=== PATIENT | male | born 1985 | race Caucasian/White ===

== ENCOUNTER 2020-12-22 22:25 | Inpatient (IN) | payer OTHER, SELFPAY ==
--- NOTE | ~2020-12-22 | XR_ITS ---
EXAMINATION: XR CHEST CLINICAL INFORMATION: Altered mental status. COMPARISON: None. TECHNIQUE: Frontal view of the chest was obtained. FINDINGS: Complete opacification of the right lung with mild leftward mediastinal shift, likely indicating a large right-sided pleural effusion. No left-sided airspace opacification. No left-sided pleural effusion or pneumothorax. No cardiomediastinal silhouette enlargement. Right chest wall port with its catheter tip in the region of the SVC. XR/XR chest 1V IMPRESSION: Complete opacification of the right chest with mild leftward mediastinal shift, likely indicating a large right-sided pleural effusion.
[2020-12-22 22:33] VITALS: BP 100/71; PULSE 86; RESP 20; TEMP 34.4; O2SAT 95; BMI 19.2
[2020-12-22 22:34] LABS: Glucose, Whole Blood 63 mg/dL (60-115)
--- NOTE | 2020-12-22 22:35 | ED_ITS ---
HPI - General Adult General Chief complaint: General Medical Stated complaint: low blood sugar Time Seen by Provider: 12/22/20 22:30 Source: patient Mode of arrival: ambulatory Limitations: no limitations History of Present Illness HPI narrative: Patient with hx of hepatitis-B with metastatic hepatocellular carcinoma diagnosed in 09/14 with ascites was on chemotherapy which was stopped last week as of terminal stage of cancer and patient was planned to go to hospice care. Today he came as his girlfriend found him very lethargic and unresponsive blood sugar dropped to 21 per EMS was given D50 and blood sugar im proved to 63 and patient became more alert, no fever no vomiting no significant abdominal pain no shortness of breath on arrival patient's blood pressure was 100/71 pulse 86 respiratory rate 20 temperature rectally 93.9 degrees Related Data Allergies Allergy/AdvReac Type Severity Reaction Status Date / Time No Known Allergies Allergy Verified 12/22/20 22:42 Review of Systems Review of Systems: Constitutional : +Weight loss, No Fever, No Chills ENT/Mouth : No sore throat, No Rhinorrhea Eyes: No Eye Pain, No Swelling Cardiovascular : No Chest Pain, no palpitations Respiratory : No Cough, No Sputum, no shortness of breath Gastrointestinal : no Nausea, No Vomiting, No Diarrhea, No abdominal Pain, no black stools Genitourinary : No Dysuria, No Urinary Frequency Musculoskeletal : No joint pain, No Myalgias, No Joint Swelling Skin : No Skin Lesions, No rash Neuro : +Weakness, No Numbness, No Dizziness, No Headache Psych : No Anxiety/Panic, No Depression Heme/Lymph: No Bruising, No Lymphadenopathy Endocrine : No Polyuria, No Polydipsia All other systems reviewed and are negative [facility] Past Medical History Medical History (Updated 12/23/20 @ 01:37 by Connor Haider MD) Chronic pericementitis Hepatitis B Liver cancer Liver cancer, primary, with metastasis from liver to other site Social History Social History Alcohol intake: never Patient Tobacco Use Status: Former Tobacco user Smoked in Last 30 Days: No Use of substances other than those prescribed or required for medical reasons: No Advance Directives: No Advance Directives Information Provided: No Physical Exam Vital Signs: Vital Signs: Last Vital Signs Temp 94.5 F L 12/23/20 00:00 Pulse 85 12/23/20 00:00 Resp 18 12/23/20 00:00 BP 101/67 12/23/20 00:00 Pulse Ox 99 12/23/20 00:00 Body Mass Index 19.2 Const: General: alert, ill appearing and lethargic Nutritional Appearance: thin and underweight Orientation/consciousness: patient oriented x3 and lethargic HENMT: Head: Yes normocephalic Ears: hearing grossly normal bilaterally Face and sinus: Yes normal facial exam Eyes: Conjunctivae: conjunctival abnormal (pallor) Sclerae: sclerae normal Neck: Neck: Yes normal visual inspection Resp: Effort & Inspection: normal respiratory effort Auscultation: diminished lung sounds on the right Percussion: dullness (Right side) Cardio: Palpation: normal PMI Rate: regular rate Rhythm: regular rhythm Heart sounds: S1 normal heart sound present and S2 normal heart sound present GI: Inspection: Yes distended Palpation (GI): Soft to palpation and Hepatosplenomegaly present Percussion: Yes dullness to percussion and Yes Fluid wave present Auscultation: normal bowel sounds : General: Yes no CVA tenderness Back/Spine/Pelvis: Back: no CVA tenderness Thoracic/Lumbar Spine: thoracic and lumbar spine normal to inspection Skin: General skin exam: no rashes or lesions noted Neuro: Other: Low muscle mass emaciated General: patient oriented x3, moves all extremities and no focal motor deficits Extrem: General: Yes normal to inspection, Yes full ROM, Yes no calf tenderness and No pedal edema Medical Decision Making MDM Narrative Medical decision making narrative: Patient with end-stage liver disease secondary to hepatocellular carcinoma unable to get chemotherapy as patient unable to tolerate came with hypoglycemia noticed to have right pleural effusion and ascites and hyperkalemia. Will admit patient for supportive treatment. Patient plan to go for hospice care Medical Records Medical records reviewed: Yes I reviewed the patient's medical records. Medical records narrative: Patient at [facility] on 12/17 with paracentesis and 3 L of serous fluid was drained , was admitted on 12/17 and discharged on 12/19 to hospice care prior to that patient was admitted on 11/20 and discharged 11/24 for hyponatremia and sinus tachycardia Lab Data Result diagrams: 12/22/20 23:21 12/23/20 00:35 Labs: Lab Results 12/22/20 12/22/20 12/22/20 Range/Units 22:29 23:08 23:21 WBC 10.9 H (4.8-10.8) X10*3/uL RBC 3.28 L (4.60-5.80) X10*6/uL Hgb 10.7 L (14.0-18.0) g/dl Hct 30.8 L (42-52) % MCV 93.9 (80-98) fL MCH 32.6 (27.0-33.0) pg MCHC 34.7 (31.0-36.0) g/dl RDW 16.5 H (11.0-16.0) % Plt Count 108 L (160-400) X10*3/uL MPV 9.3 L (9.4-12.4) fL Immature Gran % (Auto) 0.5 H (0.0-0.4) % Neut % (Auto) 79.1 H (45-73) % Lymph % (Auto) 16.5 L (20-40) % [place] % (Auto) 3.8 (2-11) % Eos % (Auto) 0.0 (0-4) % Baso % (Auto) 0.1 (0-2) % Lymph # (Auto) 1.8 (1.2-4.9) X10*3/uL [place] # (Auto) 0.4 (0.1-1.2) X10*3/uL Eos # (Auto) 0.0 (0.0-0.4) X10*3/uL Baso # (Auto) 0.0 (0.0-0.2) X10*3/uL Abs Immat Gran (auto) 0.06 H (0.00-0.03) X10*3/uL Absolute Neuts (auto) 8.6 H (2.0-8.3) X10*3/uL Absolute Nucleated RBC 0.000 (0.0-0.012) X10*3/uL Nucleated RBC % (auto) 0.0 (0.0-0.2) /100WBC PT (10.8-13.0) SEC INR (0.9-1.1) APTT (24.1-38.0) SEC Sodium Potassium Chloride Carbon Dioxide Anion Gap BUN Creatinine Estim Creat Clear Calc Estimated GFR POC Glucose 63 52 L* (60-115) mg/dL Random Glucose Lactic Acid (0.5-2.0) mmol/L Calcium Total Bilirubin (0.0-1.0) mg/dL Direct Bilirubin (0.0-0.5) mg/dL AST (5-37) U/L ALT (0-40) U/L Alkaline Phosphatase (39-117) U/L Ammonia (13-55) umol/L Total Protein (6.5-8.0) g/dL Albumin (3.5-5.0) g/dL Urine Color Urine Appearance Urine pH (5.0-8.0) Ur Specific [place] (1.005-1.025) Urine Protein (NEG-TRACE) MG/DL Urine Glucose (UA) (NEG) MG/DL Urine Ketones (NEG) MG/DL Urine Blood (NEG) Urine Nitrite (NEG) Ur Leukocyte Esterase (NEG) Urine RBC (0) /HPF Urine WBC (0-4) /HPF Ur Squamous Epith Cells /LPF Ur Renal Epithelial Cell /LPF Urine Bacteria /LPF COVID-19 (TOM) (Negative) COVID-19 Clin Com 12/22/20 12/22/20 12/22/20 Range/Units 23:21 23:21 23:21 WBC (4.8-10.8) X10*3/uL RBC (4.60-5.80) X10*6/uL Hgb (14.0-18.0) g/dl Hct (42-52) % MCV (80-98) fL MCH (27.0-33.0) pg MCHC (31.0-36.0) g/dl RDW (11.0-16.0) % Plt Count (160-400) X10*3/uL MPV (9.4-12.4) fL Immature Gran % (Auto) (0.0-0.4) % Neut % (Auto) (45-73) % Lymph % (Auto) (20-40) % [place] % (Auto) (2-11) % Eos % (Auto) (0-4) % Baso % (Auto) (0-2) % Lymph # (Auto) (1.2-4.9) X10*3/uL [place] # (Auto) (0.1-1.2) X10*3/uL Eos # (Auto) (0.0-0.4) X10*3/uL Baso # (Auto) (0.0-0.2) X10*3/uL Abs Immat Gran (auto) (0.00-0.03) X10*3/uL Absolute Neuts (auto) (2.0-8.3) X10*3/uL Absolute Nucleated RBC (0.0-0.012) X10*3/uL Nucleated RBC % (auto) (0.0-0.2) /100WBC PT 21.2 H (10.8-13.0) SEC INR 1.8 H (0.9-1.1) APTT 38.1 H (24.1-38.0) SEC Sodium Cancelled Potassium Cancelled Chloride Cancelled Carbon Dioxide Cancelled Anion Gap Cancelled BUN Cancelled Creatinine Cancelled Estim Creat Clear Calc Cancelled Estimated GFR Cancelled POC Glucose (60-115) mg/dL Random Glucose Cancelled Lactic Acid 1.8 (0.5-2.0) mmol/L Calcium Cancelled Total Bilirubin (0.0-1.0) mg/dL Direct Bilirubin (0.0-0.5) mg/dL AST (5-37) U/L ALT (0-40) U/L Alkaline Phosphatase (39-117) U/L Ammonia (13-55) umol/L Total Protein (6.5-8.0) g/dL Albumin (3.5-5.0) g/dL Urine Color Urine Appearance Urine pH (5.0-8.0) Ur Specific [place] (1.005-1.025) Urine Protein (NEG-TRACE) MG/DL Urine Glucose (UA) (NEG) MG/DL Urine Ketones (NEG) MG/DL Urine Blood (NEG) Urine Nitrite (NEG) Ur Leukocyte Esterase (NEG) Urine RBC (0) /HPF Urine WBC (0-4) /HPF Ur Squamous Epith Cells /LPF Ur Renal Epithelial Cell /LPF Urine Bacteria /LPF COVID-19 (TOM) (Negative) COVID-19 Clin Com 12/22/20 12/22/20 12/22/20 Range/Units 23:21 23:21 23:21 WBC (4.8-10.8) X10*3/uL RBC (4.60-5.80) X10*6/uL Hgb (14.0-18.0) g/dl Hct (42-52) % MCV (80-98) fL MCH (27.0-33.0) pg MCHC (31.0-36.0) g/dl RDW (11.0-16.0) % Plt Count (160-400) X10*3/uL MPV (9.4-12.4) fL Immature Gran % (Auto) (0.0-0.4) % Neut % (Auto) (45-73) % Lymph % (Auto) (20-40) % [place] % (Auto) (2-11) % Eos % (Auto) (0-4) % Baso % (Auto) (0-2) % Lymph # (Auto) (1.2-4.9) X10*3/uL [place] # (Auto) (0.1-1.2) X10*3/uL Eos # (Auto) (0.0-0.4) X10*3/uL Baso # (Auto) (0.0-0.2) X10*3/uL Abs Immat Gran (auto) (0.00-0.03) X10*3/uL Absolute Neuts (auto) (2.0-8.3) X10*3/uL Absolute Nucleated RBC (0.0-0.012) X10*3/uL Nucleated RBC % (auto) (0.0-0.2) /100WBC PT (10.8-13.0) SEC INR (0.9-1.1) APTT (24.1-38.0) SEC Sodium Potassium Chloride Carbon Dioxide Anion Gap BUN Creatinine Estim Creat Clear Calc Estimated GFR POC Glucose (60-115) mg/dL Random Glucose Lactic Acid (0.5-2.0) mmol/L Calcium Total Bilirubin (0.0-1.0) mg/dL Direct Bilirubin (0.0-0.5) mg/dL AST (5-37) U/L ALT (0-40) U/L Alkaline Phosphatase (39-117) U/L Ammonia 52 (13-55) umol/L Total Protein (6.5-8.0) g/dL Albumin (3.5-5.0) g/dL Urine Color DARK YELLOW Urine Appearance CLEAR Urine pH 6.0 (5.0-8.0) Ur Specific [place] 1.025 (1.005-1.025) Urine Protein NEG (NEG-TRACE) MG/DL Urine Glucose (UA) NEG (NEG) MG/DL Urine Ketones NEG (NEG) MG/DL Urine Blood TRACE (NEG) Urine Nitrite NEG (NEG) Ur Leukocyte Esterase NEG (NEG) Urine RBC 1-4 (0) /HPF Urine WBC 1-4 (0-4) /HPF Ur Squamous Epith Cells TRACE /LPF Ur Renal Epithelial Cell 1+ /LPF Urine Bacteria 1+ /LPF COVID-19 (TOM) Negative (Negative) COVID-19 Clin Com See Note 12/22/20 12/23/20 12/23/20 Range/Units 23:41 00:16 00:35 WBC (4.8-10.8) X10*3/uL RBC (4.60-5.80) X10*6/uL Hgb (14.0-18.0) g/dl Hct (42-52) % MCV (80-98) fL MCH (27.0-33.0) pg MCHC (31.0-36.0) g/dl RDW (11.0-16.0) % Plt Count (160-400) X10*3/uL MPV (9.4-12.4) fL Immature Gran % (Auto) (0.0-0.4) % Neut % (Auto) (45-73) % Lymph % (Auto) (20-40) % [place] % (Auto) (2-11) % Eos % (Auto) (0-4) % Baso % (Auto) (0-2) % Lymph # (Auto) (1.2-4.9) X10*3/uL [place] # (Auto) (0.1-1.2) X10*3/uL Eos # (Auto) (0.0-0.4) X10*3/uL Baso # (Auto) (0.0-0.2) X10*3/uL Abs Immat Gran (auto) (0.00-0.03) X10*3/uL Absolute Neuts (auto) (2.0-8.3) X10*3/uL Absolute Nucleated RBC (0.0-0.012) X10*3/uL Nucleated RBC % (auto) (0.0-0.2) /100WBC PT (10.8-13.0) SEC INR (0.9-1.1) APTT (24.1-38.0) SEC Sodium 125 L Potassium 6.6 H* Chloride 94 L Carbon Dioxide 22 Anion Gap 16 BUN 86 H* Creatinine 1.85 H Estim Creat Clear Calc 53.1 Estimated GFR 42 POC Glucose 128 H 111 (60-115) mg/dL Random Glucose 119 H Lactic Acid (0.5-2.0) mmol/L Calcium 7.9 L Total Bilirubin 6.7 H (0.0-1.0) mg/dL Direct Bilirubin 5.3 H (0.0-0.5) mg/dL AST 356 H (5-37) U/L ALT 46 H (0-40) U/L Alkaline Phosphatase 446 H (39-117) U/L Ammonia (13-55) umol/L Total Protein 6.6 (6.5-8.0) g/dL Albumin 1.6 L (3.5-5.0) g/dL Urine Color Urine Appearance Urine pH (5.0-8.0) Ur Specific [place] (1.005-1.025) Urine Protein (NEG-TRACE) MG/DL Urine Glucose (UA) (NEG) MG/DL Urine Ketones (NEG) MG/DL Urine Blood (NEG) Urine Nitrite (NEG) Ur Leukocyte Esterase (NEG) Urine RBC (0) /HPF Urine WBC (0-4) /HPF Ur Squamous Epith Cells /LPF Ur Renal Epithelial Cell /LPF Urine Bacteria /LPF COVID-19 (TOM) (Negative) COVID-19 Clin Com ECG Data Attestation: I personally reviewed and interpreted this ECG as follows: Interpretation: Normal sinus rhythm LVH with strain pattern and T inversion in lateral leads no acute ischemia Critical Care Time Critical Care Time Critical Care Time: Yes Total Critical Care Time: 40 Attestation: I spent 40 minutes of critical care, with interventions, assessments, speaking to patient, consultants, and family. Discharge Plan Discharge Clinical Impression: Liver cancer, primary, with metastasis from liver to other site, Acute hyperkalemia, Chronic hyponatremia, Hypoglycemia Renal failure, acute on chronic Qualifiers: Acute renal failure type: unspecified Chronic kidney disease stage: stage 3 (moderate) Chronic kidney disease stage 3 subtype: stage 3b (GFR 30-44) Qualified Code(s): N17.9 - Acute kidney failure, unspecified Patient Disposition: Admitted As Inpatient
--- NOTE | 2020-12-22 22:36 | ECG_ITS ---
Test Reason : ALTERED MENTAL STAT Blood Pressure : / mmHG Vent. Rate : 083 BPM Atrial Rate : 083 BPM P-R Int : 176 ms QRS Dur : 146 ms QT Int : 406 ms P-R-T Axes : 043 040 089 degrees QTc Int : 477 ms Normal sinus rhythm Left ventricular hypertrophy with QRS widening Abnormal ECG No previous ECGs available Referred By: Connor Haider Electronically Signed By:Clint Atkinson
[2020-12-22] MEDS: Dextrose 5 % and 0.45 % NaCl 1,000 ML 125 ML IVCONT (23:25)
[2020-12-22 23:27] LABS: MANUAL DIFF FLAG NO
[2020-12-22 23:28] LABS: Basophils Percent Auto 0.1 % (0-2); Hematocrit 30.8 % (42-52); Hemoglobin 10.7 g/dl (14.0-18.0); Imm Gran Abs Auto 0.06 X10*3/uL (0.00-0.03); Imm Gran Pct Auto 0.5 % (0.0-0.4); Lymphocytes Absolute Auto 1.8 X10*3/uL (1.2-4.9); Lymphocytes Percent Auto 16.5 % (20-40); Mean Corpuscular HGB Conc 34.7 g/dl (31.0-36.0); Mean Corpuscular Hemoglobin 32.6 pg (27.0-33.0); Mean Corpuscular Volume 93.9 fL (80-98); Mean Platelet Volume 9.3 fL (9.4-12.4); Monocytes Absolute Auto 0.4 X10*3/uL (0.1-1.2); Monocytes Percent Auto 3.8 % (2-11); Neutrophils Absolute Auto 8.6 X10*3/uL (2.0-8.3); Neutrophils Percent Auto 79.1 % (45-73); Platelet Count 108 X10*3/uL (160-400); Red Blood Count 3.28 X10*6/uL (4.60-5.80); Red Cell Distribution Width 16.5 % (11.0-16.0); White Blood Count 10.9 X10*3/uL (4.8-10.8)
[2020-12-22 23:37] VITALS: BP 95/62; PULSE 87; RESP 18; TEMP 34.6; O2SAT 95
[2020-12-22 23:37] LABS: Glucose, Whole Blood 52 mg/dL (60-115)
[2020-12-22 23:37] LABS: Ammonia 52 umol/L (13-55)
[2020-12-22 23:40] LABS: Lactic Acid 1.8 mmol/L (0.5-2.0)
[2020-12-22 23:43] LABS: Glucose Urine UA NEG (NEG); Leukocyte Esterase Urine NEG (NEG); Nitrite Urine NEG (NEG); Specific Gravity - Urine 1.025 (1.005-1.025); Urine Blood TRACE (NEG); Urine Ketones NEG (NEG); Urine Protein NEG (NEG-TRACE)
[2020-12-22 23:44] LABS: Glucose, Whole Blood 128 mg/dL (60-115)
[2020-12-22 23:44] LABS: Appearance Urine CLEAR; Color Urine DARK YELLOW
[2020-12-22 23:47] LABS: INTERNATIONAL NORM RATIO 1.8 (0.9-1.1); Prothrombin Time 21.2 SEC (10.8-13.0)
[2020-12-22 23:54] LABS: COVID-19 Test Negative (Negative); IDNOW Serial# 9DD0AD1C
[2020-12-23] VITALS (10 sets, daily range): BP systolic 87–101; BP diastolic 50–67; PULSE 85–105; RESP 9–24; TEMP 34.7–36.7; O2SAT 92–99
[2020-12-23 00:02] LABS: Bacteria Urine 1+ /LPF; Renal Epithelial Cells Urine 1+ /LPF; Squamous Epithelial Cell Urine TRACE /LPF
[2020-12-23 00:17] LABS: Partial Thromboplastin Time 38.1 SEC (24.1-38.0)
[2020-12-23 00:20] LABS: Glucose, Whole Blood 111 mg/dL (60-115)
[2020-12-23] MEDS: ondansetron HCL 4 MG/2 ML VIAL IVPUSH (00:27)
[2020-12-23] MEDS: Morphine Sulfate 4 MG/ML CARTRIDGE IVPUSH (00:27)
[2020-12-23 01:11] LABS: Alanine Aminotransferase 46 U/L (0-40); Albumin Level 1.6 g/dL (3.5-5.0); Alkaline Phosphatase 446 U/L (39-117); Anion Gap 16 (12-20); Aspartate Amino Transferase 356 U/L (5-37); Bilirubin Direct 5.3 mg/dL (0.0-0.5); Bilirubin Total 6.7 mg/dL (0.0-1.0); Blood Urea Nitrogen 86 mg/dL (9-16); Calcium 7.9 mg/dL (8.4-10.2); Carbon Dioxide 22 mmol/L (22-29); Chloride 94 mmol/L (96-108); Creatinine Clr Calc Pharmacy 53.1; Estimated Glomerular Filt Rate 42; Glucose Random 119 mg/dL (60-115); Potassium 6.6 mmol/L (3.3-5.1); Sodium 125 mmol/L (135-145); Total Protein 6.6 g/dL (6.5-8.0)
[2020-12-23] MEDS: Insulin Regular, Human 100 UNIT/ML 3 ML VIAL IVPUSH (01:29)
[2020-12-23] MEDS: Sodium Bicarbonate 8.4% 50 MEQ/50 ML VIAL IVPUSH (01:30)
[2020-12-23] MEDS: Calcium Gluconate/NaCl,Iso-Osm 2 GM/100 ML PLAST..BAG IV (01:36)
--- NOTE | 2020-12-23 02:45 | PC.NURSE ---
Monitoring pt at this time. pending admission. spouse asleep at bedside. per spouse, pt is on metroprolol for rate control and has normal hr in 120s. pt is abnormally low. Per spouse pt is full code at this time. does not tolerate po well and was pending hospice eval by [facility].
--- NOTE | 2020-12-23 03:05 | PC.NURSE ---
contact made to hosptialist. plan to put in orders at this time and eval upstairs.
--- NOTE | 2020-12-23 03:13 | PC.NURSE ---
Report taken from Hodan, this RN resuming care. Per Hodan, plan for admission and possibly change of status to RN BURN. Pts girlfriend at bedside, pt resting in bed at this time. D5LR infusing according to MAR. VSS at this time. Pt and girlfriend aware of plan for admission to hospital, room assignment pending. Continue to monitor.
--- NOTE | 2020-12-23 03:56 | PC.NURSE ---
Repeat chemistries obtained and sent. Per girlfriend, pt feeling restless due to pain. GF requesting pain medication. This RN contacting hospitalist regarding PRN order for pain medication. Continue to monitor, awaiting room assignment.
--- NOTE | 2020-12-23 04:15 | PC.NURSE ---
This RN contacting pharmacy regarding verification of Dilaudid. Per Pharmacy, working on it.
[2020-12-23] MEDS: HYDROmorphone HCl 1 MG/ML SYRINGE IVPUSH (04:23)
--- NOTE | 2020-12-23 04:25 | PC.NURSE ---
Dilaudid order remains unverified despite this RN calling night pharmacy. Pt medicated with Dilaudid despite verification due to terminal illness and severe pain. VSS at this time, continue to monitor.
[2020-12-23 04:39] LABS: Anion Gap 18 (12-20); Blood Urea Nitrogen 86 mg/dL (9-16); Calcium 8.4 mg/dL (8.4-10.2); Carbon Dioxide 21 mmol/L (22-29); Chloride 93 mmol/L (96-108); Creatinine Clr Calc Pharmacy 51.4; Estimated Glomerular Filt Rate 40; Glucose Random 121 mg/dL (60-115); Potassium 6.7 mmol/L (3.3-5.1); Sodium 125 mmol/L (135-145)
--- NOTE | 2020-12-23 04:57 | PC.NURSE ---
This RN contacting hospitalist regarding orders for room 21. This RN discussing possible [employer] orders with MD. This RN asking MD to assess pt regarding orders for further procedures and medications as pt was supposed to begin hospice today. MD coming to bedside.
--- NOTE | 2020-12-23 05:16 | P.HPHOSP_ITS ---
History of Present Illness Date of Service: 12/23/20 Chief Complaint: Semi-responsive Male with past medical history of hepatitis-B, primary liver cancer with Mets, presents to the hospital after his girlfriend found to be unresponsive. Patient's girlfriend at bedside reports that he was feeling weak and less r esponsive throughout the day but found him down and called EMS. On arrival of EMS patient's glucose was 21. Patient himself currently is somnolent, he speaks [place] only, tried to get any history from him with the help of child care development specialist with no success. He attempts communication but only moves his eyes and his hand sometimes and not able to communicate clearly with us. His girlfriend at bedside is his healthcare proxy. It is seems the patient was diagnosed with liver cancer in August and attempted chemotherapy with no success. He did not tolerate chemotherapy and therefore was discontinued. Patient is very cachectic, girlfriend reports that his p.o. intake has also significantly decrea sed. Patient was given glucagon, D50 x2, and started on D5 with half NS in his glucose improved. On arrival labs were significant for WBC count of 10.9, hemoglobin of 10.7, sodium of 125, potassium of 6.7, BUN of 86, creatinine of 1.9, elevated bili of 6.7, AST of 356 ALT of 46, alk-phos of 446 and albumin of 1.6. Had an extensive discussion with the patient's girlfriend who is his healthcare proxy regarding his poor prognosis, there was aplan to make pt hospice but she has not had a chance to have that discussion yet before pt becoming sick today. patient unable to take any p.o. intake at this time, is unable to take any Kayexalate, I discussed the potential for cardiac arrhythmia as a result of the hyperkalemia. Gave the option of per rectum administration of Kayexalate, but also discussed extensively alternatives like comfort measures. At this time his healthcare proxy (Liberty Christianson) does want him to have Kayexalate administered rectally but would like to make patient comfortable. The nurse and the child care development specialist were both present during this discussion and we tried to ask patient directly this question but he was unable to communicate his needs and his girlfriend reported that as his healthcare proxy she would like him to be comfortable at this time. Per his hcp ( gf), pt has no family and does not have any contacts. Comfort measures initiated. HCP: Leopoldo Christianson ( [place]) Review of Systems Review of Systems: Yes Unobtainable due to mental status [facility] Medical History Chronic pericementitis Hepatitis B Liver cancer Liver cancer, primary, with metastasis from liver to other site Social History Alcohol intake: never Patient Tobacco Use Status: Former Tobacco user Smoked in Last 30 Days: No Use of substances other than those prescribed or required for medical reasons: No Advance Directives: No Advance Directives Information Provided: No Meds Allergies Allergy/AdvReac Type Severity Reaction Status Date / Time No Known Allergies Allergy Verified 12/22/20 22:42 Active Medications: Current Medications Generic Name Dose Route Start Last Admin Trade Name Freq PRN Reason Stop Dose Admin Docusate Sodium 100 mg 12/23/20 03:49 Docusate Sodium 100 Mg Capsule PO DAILY PRN Constipation Dextrose/Sodium Chloride 1,000 mls @ 125 mls/hr 12/22/20 22:45 12/22/20 23:25 D51/2ns IVCONT 125 mls/hr .Q8H CHANDNI Administration Calcium Gluconate 2 gm in 100 mls @ 50 mls/hr 12/23/20 04:41 Calcium Gluconate IV 12/23/20 06:40 ONCE ONE Metoprolol Succinate 25 mg 12/23/20 09:00 Metoprolol Succinate Er 25 Mg Tab.Er.24h PO DAILY [facility] Protocol Ondansetron HCl 4 mg 12/23/20 03:49 Ondansetron Hcl 4 Mg/2 Ml Vial IVPUSH Q8H PRN Nausea and Vomiting Oxycodone HCl 10 mg 12/23/20 03:49 Oxycodone Hcl Immed Release 5 Mg Tablet PO Q3H PRN Pain Rifaximin 550 mg 12/23/20 09:00 Rifaximin 550 Mg Tablet PO BID CHANDNI Sodium Chloride 3 ml 12/23/20 08:00 0.9 % Sodium Chloride Flush 3 Ml Syringe IVFLUSH QSHIFT [facility] Home Medications Medication Instructions Recorded Confirmed Last Taken Type metoprolol succinate 1 tab PO DAILY 12/23/20 12/23/20 Unknown History oxycodone 2 tab PO Q3-4H PRN 12/23/20 12/23/20 Unknown History rifaximin [Xifaxan] 1 tab PO BID 12/23/20 12/23/20 Unknown History tenofovir alafenamide [Vemlidy] 1 tab PO DAILY 12/23/20 12/23/20 Unknown History Physical Exam Vital Signs and Narrative: Vital Signs: Last Vital Signs Temp 98.1 F 12/23/20 04:24 Pulse 99 12/23/20 04:24 Resp 14 12/23/20 04:24 BP 88/56 L 12/23/20 04:24 Pulse Ox 95 12/23/20 04:24 Body Mass Index 19.2 Const: General: awake, lethargic and tired appearing Nutritional Appearance: cachectic (Severely cachectic) Orientation/consciousness: lethargic Eyes: General: appearance normal, both eyes and all related structures Resp: Other: Tachypneic Cardio: Rate: regular rate Rhythm: regular rhythm GI: Palpation (GI): Soft to palpation Auscultation: normal bowel sounds Extrem: General: Yes normal to inspection and Yes no pedal edema Results Labs CBC and Chem 7: 12/22/20 23:21 12/23/20 03:55 Labs: Laboratory Results - last 24 hr 12/22/20 12/22/20 12/22/20 22:29 23:08 23:21 MCV 93.9 MCH 32.6 MCHC 34.7 RDW 16.5 H Plt Count 108 L MPV 9.3 L Immature Gran % (Auto) 0.5 H Neut % (Auto) 79.1 H Lymph % (Auto) 16.5 L [place] % (Auto) 3.8 Eos % (Auto) 0.0 Baso % (Auto) 0.1 Lymph # (Auto) 1.8 [place] # (Auto) 0.4 Eos # (Auto) 0.0 Baso # (Auto) 0.0 Abs Immat Gran (auto) 0.06 H Absolute Neuts (auto) 8.6 H Absolute Nucleated RBC 0.000 Nucleated RBC % (auto) 0.0 PT INR APTT Anion Gap Estim Creat Clear Calc Estimated GFR POC Glucose 63 52 L* Random Glucose Lactic Acid Calcium Total Bilirubin Direct Bilirubin AST ALT Alkaline Phosphatase Ammonia Total Protein Albumin Urine Color Urine Appearance Urine pH Ur Specific [place] Urine Protein Urine Glucose (UA) Urine Ketones Urine Blood Urine Nitrite Ur Leukocyte Esterase Urine RBC Urine WBC Ur Squamous Epith Cells Ur Renal Epithelial Cell Urine Bacteria COVID-19 (TOM) COVID-19 Clin Com 12/22/20 12/22/20 12/22/20 23:21 23:21 23:21 MCV MCH MCHC RDW Plt Count MPV Immature Gran % (Auto) Neut % (Auto) Lymph % (Auto) [place] % (Auto) Eos % (Auto) Baso % (Auto) Lymph # (Auto) [place] # (Auto) Eos # (Auto) Baso # (Auto) Abs Immat Gran (auto) Absolute Neuts (auto) Absolute Nucleated RBC Nucleated RBC % (auto) PT 21.2 H INR 1.8 H APTT 38.1 H Anion Gap Cancelled Estim Creat Clear Calc Cancelled Estimated GFR Cancelled POC Glucose Random Glucose Cancelled Lactic Acid 1.8 Calcium Cancelled Total Bilirubin Direct Bilirubin AST ALT Alkaline Phosphatase Ammonia Total Protein Albumin Urine Color Urine Appearance Urine pH Ur Specific [place] Urine Protein Urine Glucose (UA) Urine Ketones Urine Blood Urine Nitrite Ur Leukocyte Esterase Urine RBC Urine WBC Ur Squamous Epith Cells Ur Renal Epithelial Cell Urine Bacteria COVID-19 (TOM) COVID-19 [employer] 12/22/20 12/22/20 12/22/20 23:21 23:21 23:21 MCV MCH MCHC RDW Plt Count MPV Immature Gran % (Auto) Neut % (Auto) Lymph % (Auto) [place] % (Auto) Eos % (Auto) Baso % (Auto) Lymph # (Auto) [place] # (Auto) Eos # (Auto) Baso # (Auto) Abs Immat Gran (auto) Absolute Neuts (auto) Absolute Nucleated RBC Nucleated RBC % (auto) PT INR APTT Anion Gap Estim Creat Clear Calc Estimated GFR POC Glucose Random Glucose Lactic Acid Calcium Total Bilirubin Direct Bilirubin AST ALT Alkaline Phosphatase Ammonia 52 Total Protein Albumin Urine Color DARK YELLOW Urine Appearance CLEAR Urine pH 6.0 Ur Specific [place] 1.025 Urine Protein NEG Urine Glucose (UA) NEG Urine Ketones NEG Urine Blood TRACE Urine Nitrite NEG Ur Leukocyte Esterase NEG Urine RBC 1-4 Urine WBC 1-4 Ur Squamous Epith Cells TRACE Ur Renal Epithelial Cell 1+ Urine Bacteria 1+ COVID-19 (TOM) Negative COVID-19 Clin Com See Note 05/31/21 06/01/21 06/01/21 23:41 00:16 00:35 MCV MCH MCHC RDW Plt Count MPV Immature Gran % (Auto) Neut % (Auto) Lymph % (Auto) [place] % (Auto) Eos % (Auto) Baso % (Auto) Lymph # (Auto) [place] # (Auto) Eos # (Auto) Baso # (Auto) Abs Immat Gran (auto) Absolute Neuts (auto) Absolute Nucleated RBC Nucleated RBC % (auto) PT INR APTT Anion Gap 16 Estim Creat Clear Calc 53.1 Estimated GFR 42 POC Glucose 128 H 111 Random Glucose 119 H Lactic Acid Calcium 7.9 L Total Bilirubin 6.7 H Direct Bilirubin 5.3 H AST 356 H ALT 46 H Alkaline Phosphatase 446 H Ammonia Total Protein 6.6 Albumin 1.6 L Urine Color Urine Appearance Urine pH Ur Specific [place] Urine Protein Urine Glucose (UA) Urine Ketones Urine Blood Urine Nitrite Ur Leukocyte Esterase Urine RBC Urine WBC Ur Squamous Epith Cells Ur Renal Epithelial Cell Urine Bacteria COVID-19 (TOM) COVID-19 [employer] 12/23/20 03:55 MCV MCH MCHC RDW Plt Count MPV Immature Gran % (Auto) Neut % (Auto) Lymph % (Auto) [place] % (Auto) Eos % (Auto) Baso % (Auto) Lymph # (Auto) [place] # (Auto) Eos # (Auto) Baso # (Auto) Abs Immat Gran (auto) Absolute Neuts (auto) Absolute Nucleated RBC Nucleated RBC % (auto) PT INR APTT Anion Gap 18 Estim Creat Clear Calc 51.4 Estimated GFR 40 POC Glucose Random Glucose 121 H Lactic Acid Calcium 8.4 D Total Bilirubin Direct Bilirubin AST ALT Alkaline Phosphatase Ammonia Total Protein Albumin Urine Color Urine Appearance Urine pH Ur Specific [place] Urine Protein Urine Glucose (UA) Urine Ketones Urine Blood Urine Nitrite Ur Leukocyte Esterase Urine RBC Urine WBC Ur Squamous Epith Cells Ur Renal Epithelial Cell Urine Bacteria COVID-19 (TOM) COVID-19 [employer] Com Imaging Radiologist's Impressions: Impressions Chest X-Ray 12/22/20 22:44 IMPRESSION: Complete opacification of the right chest with mild leftward mediastinal shift, likely indicating a large right-sided pleural effusion. Assessment and Plan (1) Liver cancer, primary, with metastasis from liver to other site: Status: Acute (2) Acute hyperkalemia: Status: Acute (3) Renal failure, acute on chronic: Qualifiers: Acute renal failure type: unspecified Chronic kidney disease stage: st age 3 (moderate) Chronic kidney disease stage 3 subtype: stage 3b (GFR 30-44) Qualified Code(s): N17.9 - Acute kidney failure, unspecified; N18.32 - Chronic kidney disease, stage 3b Status: Acute (4) Chronic hyponatremia: Status: Acute (5) Hypoglycemia: Status: Acute This is a 35-year-old male with past medical history of liver cancer recently diagnosed in August who failed chemotherapy treatment presents to the hospital with hypoglycemia. Patient was treated for the hypoglycemia and currently on D5 but has been found to have hyperkalemia. Calcium gluconate, sodium bicarb, insulin and glucose were given, patient unable to take any p.o. other for Kayexalate was attempted but also not able to be administered, potassium remains high, had discussion with his healthcare proxy and at this point patient will be made comfortable. I discussed with the patient's girlfriend that he may go into arrhythmia as a result of his hyperkalemia. At this time she does want Kayexalate given rectally but also wants us to make him comfortable by given him medications to any help reduce his pain and suffering as well as his anxiety and tachypnea. She is aware that he may pass and that at this time we focus on patient's comfort and she is agreeable. This discussion occurred in the presence of nurse as well as child care development specialist Healthcare proxy: Liberty Christianson more than 30 mins were spent in discussion and chart review
[2020-12-23] MEDS: Sodium Polystyrene Sulfon/Sorb 15 GM/60 ML ORAL.SUSP 30 GM PR (05:25)
[2020-12-23] MEDS: Albuterol/Iprat 2.5/0.5MG 3 ML AMPUL.NEB INHALE (05:41)
--- NOTE | 2020-12-23 05:41 | PC.NURSE ---
Pt medicated with Kayexalate AR. Pt provided with fresh bed linens and repositioning. Pt reporting pain, girlfriend requesting pain medication. RT at bedside for UPD. VSS at this time.
[2020-12-23] MEDS: LORazepam 0.5 MG TABLET SUBLINGUAL (05:52)
[2020-12-23] MEDS: Morphine Sulfate 4 MG/ML CARTRIDGE IM (05:52)
--- NOTE | 2020-12-23 06:04 | PC.NURSE ---
Pt medicated with PRN Ativan and PRN Morphine for anxiety, pain and restlessness. 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 Continue to monitor.
[2020-12-23] MEDS: Dextrose 5 % and 0.45 % NaCl 1,000 ML 125 ML IVCONT ×2 (06:27→14:31)
--- NOTE | 2020-12-23 06:38 | PC.NURSE ---
This RN discussing situation with ER MD, plan for Morphine infusion. This RN contacting pharmacy.
--- NOTE | 2020-12-23 08:31 | P.HPHOSP_ITS ---
History of Present Illness Date of Service: 12/23/20 35-year-old gentleman with a past medical history significant for metastatic hepatocellular carcinoma secondary to chronic hepatitis B treated with chemotherapy with atezolizumab and bevacizumab at [facility]--he was diagnosed around at the end of august this year. The reported targed chemotherapy has been unsucesful and complications of hyponatremia and anemia that has required hospitalization. Chemo was stopped about a week ago Acording to his significant other at bed side Liberty who is also health care proxy, patient has been steadily declining and was offered hospice but declined and unfortunately continue to declined. Today, his girlfriend found him very lethargic and unresponsive. His sugar was 21 per EMS and was given D50 and blood sugar improved to 63 and patient became slightly more alert, but significantly very lethargic, blood pressure is low 87/61. Following discussion with his girlfriend decision has been made that the patient to be comfort care measures with no further treatment and has been given morphine. He is presently unresponsive is not able to communicate. His respirations are shallow PMFSH Medical History Chronic pericementitis Hepatitis B Liver cancer Liver cancer, primary, with metastasis from liver to other site Social History Alcohol intake: never Patient Tobacco Use Status: Former Tobacco user Smoked in Last 30 Days: No Use of substances other than those prescribed or required for medical reasons: No Advance Directives: No Advance Directives Information Provided: No Meds Allergies Allergy/AdvReac Type Severity Reaction Status Date / Time No Known Allergies Allergy Verified 12/22/20 22:42 Active Medications: Current Medications Generic Name Dose Route Start Last Admin Trade Name Freq PRN Reason Stop Dose Admin Docusate Sodium 100 mg 12/23/20 03:49 Docusate Sodium 100 Mg Capsule PO DAILY PRN Constipation Dextrose/Sodium Chloride 1,000 mls @ 125 mls/hr 12/22/20 22:45 12/23/20 06:27 D51/2ns IVCONT 125 mls/hr .Q8H CHANDNI Administration Morphine Sulfate 100 mg in 100 mls @ 0 mls/hr 12/23/20 06:45 IVCONT .Q0M CHANDNI Protocol Per Protocol Lorazepam 0.5 mg 12/23/20 05:19 12/23/20 05:52 Lorazepam 0.5 Mg Tablet SUBLINGUAL 0.5 mg Q4H PRN Administration anxiety/restlessness Metoprolol Succinate 25 mg 12/23/20 09:00 Metoprolol Succinate Er 25 Mg Tab.Er.24h PO DAILY [facility] Protocol Morphine Sulfate 4 mg 12/23/20 05:19 12/23/20 05:52 Morphine Sulfate 4 Mg/Ml Cartridge IM 4 mg Q4H PRN Administration Discomfort/Shortness of breath Naloxone HCl 0.2 mg 12/23/20 05:19 Naloxone Hcl 0.4 Mg/Ml Vial IVPUSH Q2M PRN Excessive sedation or RR < 8 Ondansetron HCl 4 mg 12/23/20 03:49 Ondansetron Hcl 4 Mg/2 Ml Vial IVPUSH Q8H PRN Nausea and Vomiting Sodium Chloride 3 ml 12/23/20 08:00 0.9 % Sodium Chloride Flush 3 Ml Syringe IVFLUSH QSHIFT [facility] Home Medications Medication Instructions Recorded Confirmed Last Taken Type metoprolol succinate 1 tab PO DAILY 12/23/20 12/23/20 Unknown History oxycodone 2 tab PO Q3-4H PRN 12/23/20 12/23/20 Unknown History rifaximin [Xifaxan] 1 tab PO BID 12/23/20 12/23/20 Unknown History tenofovir alafenamide [Vemlidy] 1 tab PO DAILY 12/23/20 12/23/20 Unknown History Physical Exam Vital Signs and Narrative: Vital Signs: Last Vital Signs Temp 98.1 F 12/23/20 05:55 Pulse 100 12/23/20 05:55 Resp 12 12/23/20 05:55 BP 87/61 L 12/23/20 05:55 Pulse Ox 92 12/23/20 05:55 Body Mass Index 19.2 Results Labs CBC and Chem 7: 12/22/20 23:21 12/23/20 03:55 Labs: Laboratory Results - last 24 hr 12/22/20 12/22/20 12/22/20 22:29 23:08 23:21 MCV 93.9 MCH 32.6 MCHC 34.7 RDW 16.5 H Plt Count 108 L MPV 9.3 L Immature Gran % (Auto) 0.5 H Neut % (Auto) 79.1 H Lymph % (Auto) 16.5 L [place] % (Auto) 3.8 Eos % (Auto) 0.0 Baso % (Auto) 0.1 Lymph # (Auto) 1.8 [place] # (Auto) 0.4 Eos # (Auto) 0.0 Baso # (Auto) 0.0 Abs Immat Gran (auto) 0.06 H Absolute Neuts (auto) 8.6 H Absolute Nucleated RBC 0.000 Nucleated RBC % (auto) 0.0 PT INR APTT Anion Gap Estim Creat Clear Calc Estimated GFR POC Glucose 63 52 L* Random Glucose Lactic Acid Calcium Total Bilirubin Direct Bilirubin AST ALT Alkaline Phosphatase Ammonia Total Protein Albumin Urine Color Urine Appearance Urine pH Ur Specific [place] Urine Protein Urine Glucose (UA) Urine Ketones Urine Blood Urine Nitrite Ur Leukocyte Esterase Urine RBC Urine WBC Ur Squamous Epith Cells Ur Renal Epithelial Cell Urine Bacteria COVID-19 (TOM) [employer] 12/22/20 12/22/20 12/22/20 23:21 23:21 23:21 MCV MCH MCHC RDW Plt Count MPV Immature Gran % (Auto) Neut % (Auto) Lymph % (Auto) [place] % (Auto) Eos % (Auto) Baso % (Auto) Lymph # (Auto) [place] # (Auto) Eos # (Auto) Baso # (Auto) Abs Immat Gran (auto) Absolute Neuts (auto) Absolute Nucleated RBC Nucleated RBC % (auto) PT 21.2 H INR 1.8 H APTT 38.1 H Anion Gap Cancelled Estim Creat Clear Calc Cancelled Estimated GFR Cancelled POC Glucose Random Glucose Cancelled Lactic Acid 1.8 Calcium Cancelled Total Bilirubin Direct Bilirubin AST ALT Alkaline Phosphatase Ammonia Total Protein Albumin Urine Color Urine Appearance Urine pH Ur Specific [place] Urine Protein Urine Glucose (UA) Urine Ketones Urine Blood Urine Nitrite Ur Leukocyte Esterase Urine RBC Urine WBC Ur Squamous Epith Cells Ur Renal Epithelial Cell Urine Bacteria COVID-19 (TOM) [employer] 12/22/20 12/22/20 12/22/20 23:21 23:21 23:21 MCV MCH MCHC RDW Plt Count MPV Immature Gran % (Auto) Neut % (Auto) Lymph % (Auto) [place] % (Auto) Eos % (Auto) Baso % (Auto) Lymph # (Auto) [place] # (Auto) Eos # (Auto) Baso # (Auto) Abs Immat Gran (auto) Absolute Neuts (auto) Absolute Nucleated RBC Nucleated RBC % (auto) PT INR APTT Anion Gap Estim Creat Clear Calc Estimated GFR POC Glucose Random Glucose Lactic Acid Calcium Total Bilirubin Direct Bilirubin AST ALT Alkaline Phosphatase Ammonia 52 Total Protein Albumin Urine Color DARK YELLOW Urine Appearance CLEAR Urine pH 6.0 Ur Specific [place] 1.025 Urine Protein NEG Urine Glucose (UA) NEG Urine Ketones NEG Urine Blood TRACE Urine Nitrite NEG Ur Leukocyte Esterase NEG Urine RBC 1-4 Urine WBC 1-4 Ur Squamous Epith Cells TRACE Ur Renal Epithelial Cell 1+ Urine Bacteria 1+ COVID-19 (TOM) Negative COVID-19 Clin Com See Note 12/22/20 12/23/20 12/23/20 23:41 00:16 00:35 MCV MCH MCHC RDW Plt Count MPV Immature Gran % (Auto) Neut % (Auto) Lymph % (Auto) [place] % (Auto) Eos % (Auto) Baso % (Auto) Lymph # (Auto) [place] # (Auto) Eos # (Auto) Baso # (Auto) Abs Immat Gran (auto) Absolute Neuts (auto) Absolute Nucleated RBC Nucleated RBC % (auto) PT INR APTT Anion Gap 16 Estim Creat Clear Calc 53.1 Estimated GFR 42 POC Glucose 128 H 111 Random Glucose 119 H Lactic Acid Calcium 7.9 L Total Bilirubin 6.7 H Direct Bilirubin 5.3 H AST 356 H ALT 46 H Alkaline Phosphatase 446 H Ammonia Total Protein 6.6 Albumin 1.6 L Urine Color Urine Appearance Urine pH Ur Specific [place] Urine Protein Urine Glucose (UA) Urine Ketones Urine Blood Urine Nitrite Ur Leukocyte Esterase Urine RBC Urine WBC Ur Squamous Epith Cells Ur Renal Epithelial Cell Urine Bacteria COVID-19 (TOM) COVID-19 Clin Com 12/23/20 03:55 MCV MCH MCHC RDW Plt Count MPV Immature Gran % (Auto) Neut % (Auto) Lymph % (Auto) [place] % (Auto) Eos % (Auto) Baso % (Auto) Lymph # (Auto) [place] # (Auto) Eos # (Auto) Baso # (Auto) Abs Immat Gran (auto) Absolute Neuts (auto) Absolute Nucleated RBC Nucleated RBC % (auto) PT INR APTT Anion Gap 18 Estim Creat Clear Calc 51.4 Estimated GFR 40 POC Glucose Random Glucose 121 H Lactic Acid Calcium 8.4 D Total Bilirubin Direct Bilirubin AST ALT Alkaline Phosphatase Ammonia Total Protein Albumin Urine Color Urine Appearance Urine pH Ur Specific [place] Urine Protein Urine Glucose (UA) Urine Ketones Urine Blood Urine Nitrite Ur Leukocyte Esterase Urine RBC Urine WBC Ur Squamous Epith Cells Ur Renal Epithelial Cell Urine Bacteria COVID-19 (TOM) COVID-19 Clin Com Imaging Radiologist's Impressions: Impressions Chest X-Ray 12/22/20 22:44 IMPRESSION: Complete opacification of the right chest with mild leftward mediastinal shift, likely indicating a large right-sided pleural effusion.
--- NOTE | 2020-12-23 08:42 | PC.NURSE ---
PT HAD A WATERY MEDIUM STOOL, PT CHANGED OVER AND REPOSITIONED WITH PILLOWS. PT EXTREMELY FRAIL IN APPEARANCE, NON-VERBAL AT THIS TIME. PER PT'S SIGNIFICANT OTHER REPORTS THAT PT'S LOOKS COMFORTABLE AT THIS TIME, AWAITING FOR THE MORPHINE INFUSION PUMP.
[2020-12-23] MEDS: Morphine Sulfate/NS 100 MG/100 ML PLAST..BAG IVCONT (09:51)
--- NOTE | 2020-12-23 10:51 | PC.NURSE ---
Pt arrived via stretcher from ED, Comfort Measures Only, pt only staring no speech, no movement. On a Morphine Drip at 2 mg hour. Patient appears to be comfortable. Family in room with patient, comfort cart ordered for family.
--- NOTE | 2020-12-23 11:14 | PC.NURSE ---
Spoke with Dr. Benítez concerning Telemetry monitoring. Dr. Benítez said no need for monitor.
[2020-12-23] MEDS: Morphine Sulfate 2 MG/ML CARTRIDGE IVPUSH (17:07)
--- NOTE | 2020-12-23 20:49 | PM.EVENT ---
Event Note Date of Service: 12/23/20 Event Note: pt pronounced at 8:25pm
--- NOTE | 2020-12-23 23:49 | P.DN_ITS ---
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
== END 2020-12-23 23:40 | disposition expired | DRG 435 ==
LOC: HO.ED 12-23 01:35 → HO.EDOVER 12-23 03:52 → HO.S3 12-23 09:21
PROVIDERS: Admitting Provider Internal Medicine; Emergency Provider Internal Medicine; PCP Internal Medicine; Visit Provider Internal Medicine
DX: C22.8 Malignant neoplasm of liver, primary, unspecified as to type (principal); R40.20 Unspecified coma; N17.9 Acute kidney failure, unspecified; E87.1 Hypo-osmolality and hyponatremia; R64 Cachexia; Z68.1 Body mass index [BMI] 19.9 or less, adult; E16.2 Hypoglycemia, unspecified; E87.5 Hyperkalemia; N18.32 Chronic kidney disease, stage 3b; Z20.822 Contact with and (suspected) exposure to COVID-19; Z87.891 Personal history of nicotine dependence; Z79.891 Long term (current) use of opiate analgesic; Z79.899 Other long term (current) drug therapy
CPT/HCPCS: 36415; 71045; 80048; 80076; 81001; 82140; 82947; 83605; 85025; 85610; 85730; 87040; 87635; 93005; 94640; 96374; 96375; 99285; 99291; J0610; J1170; J1610; J2270; J2405